=== PATIENT | male | born 1965 | race Caucasian/White ===

== ENCOUNTER 2018-10-17 10:44 | Emergency (ER) | payer MEDICAID ==
[2018-10-17] MEDS ORDERED: IPRATROPIUM/ALBUTEROL 3 ML DEYVIAL ONE ×2 (13:07→13:08)
[2018-10-17] MEDS ORDERED: IPRATROPIUM/ALBUTEROL 3 ML DEYVIAL IH ONE (13:08)
--- NOTE | 2018-10-17 13:17 | EDPHY ---
H & P Time Seen by Provider: 10/17/18 11:25 HPI/ROS: HPI Cough. Achy. 53-year-old male by private vehicle. This patient reports that for the last 1- 2 weeks he has had a cough which she describes as dry. He reports that it is worse with any physical exertion. He reports he has felt achy as well all over his body. He reports that he has had nasal congestion with clear rhinorrhea. He reports that he was working with a friend today when his cough worsened and he had associated shortness of breath with the cough. ROS: Constitutional: No fever, no chills. No weakness. Eyes: No discharge. No changes in vision. ENT: No sore throat. No nasal congestion or rhinorrhea. Respiratory: As above. Cardiac: No chest pain, no palpitations. Gastrointestinal: No abdominal pain, no vomiting, no diarrhea. Genitourinary: No hematuria. No dysuria or increased frequency with urination. Musculoskeletal: No back pain. No neck pain. As above. Skin: No rashes. Neurological: No headache. No focal weakness or altered sensation. Past medical history: Hypertension. He does not take medication for this. He currently does not have a primary care physician. Social history: He is a smoker. No alcohol. He is here by himself. Physical Exam: General Appearance: Alert, no distress. This patient is responding to questions appropriately and in full sentences. This patient appears well- hydrated and well-nourished. Intermittent dry raspy cough. Eyes: Pupils equal and round no pallor or injection. No lid edema, erythema or injection. ENT, Mouth: Mucous membranes are moist. The pharyngeal tissues are unremarkable except some mild and diffuse erythema. No edema or swelling. No asymmetry suggestive of abscess. No exudates. Respiratory: There are no retractions, lungs are clear to auscultation with good air movement bilaterally. No tachypnea. Intermittent dry cough. Cardiovascular: Regular rate and rhythm. No murmur. Neurological: Motor sensory function is grossly intact. Cranial nerves are normal. Gait is normal. Skin: Warm and dry, no rashes. Musculoskeletal: Neck is supple and nontender. No cervical, submandibular, submental lymphadenopathy. No pain on flexion of his neck. Extremities are symmetrical. All joints range without pain or impingement. Psychiatric: No agitation. No depression. Database: EKG: EKG time is 2:09 p.m.; EKG shows a narrow complex normal sinus rhythm with a ventricular rate of 83. Probable left ventricular hypertrophy. The AR, QRS, QT intervals are within normal limits. There are no ST-T wave changes indicative of ischemic or injury pattern. No evidence of right heart strain. Interpreted by me. Imaging: Chest x-ray PA and lateral: No infiltrate. No pneumothorax. Cardiac mediastinal silhouette is unremarkable. Airway disease noted. No other acute cardiopulmonary disease process. Interpreted by me. Procedures: Emergency department course: Triage vital signs reviewed. He is hypertensive. Vital signs are otherwise normal. Pulse oximetry on room air is 96%. He will be given 2 duo nebs back-to -back. His presentation is consistent with a viral bronchitis/upper respiratory infection. Influenza negative. 1:20 p.m., the patient was re-evaluated. He is currently finishing his nebulizer treatment. Results of his chest x-ray discussed with him. 2:00 p.m., the patient was re-evaluated, he has finished his nebulizer treatments. He states that he feels he can breathe better. Repeat pulmonary exam is clear on auscultation bilaterally. However, he states that he still does not feel right. He states that he got up and felt more short of breath and is complaining of chest tightness. EKG will be obtained as well as point of care troponin and D-dimer. 3:20 p.m., the patient's cardiac workup has been reassuring. No red flags. The patient was re-evaluated. Results of this workup were discussed with him. He feels comfortable going home at this time. Vital signs reviewed and are unremarkable. Follow-up and return to emergency department precautions were reviewed with him. All of his questions were answered. The patient was discharged home in good condition. Differential Diagnosis: The differential diagnosis on this patient includes but is not limited to viral syndrome, bronchitis, upper respiratory infection. Pneumonia, serious bacterial infection, congestive heart failure, acute coronary syndrome unlikely. This represents a partial list of diagnoses considered. These considerations are based on history, physical exam, past history, reassessment and diagnostic testing. Smoking Status: Current every day smoker Constitutional: Initial Vital Signs Temperature (C) 36.9 C 10/17/18 10:45 Heart Rate 97 10/17/18 10:45 Respiratory Rate 20 10/17/18 10:45 Blood Pressure 178/109 H 10/17/18 10:45 O2 Sat (%) 96 10/17/18 10:45 O2 Delivery Mode Room Air Allergies/Adverse Reactions: No Known Allergies Allergy (Unverified 10/17/18 10:49) Home Medications: Medication Instructions Recorded Albuterol [Proventil Inhaler HFA 2 puffs IH Q2-4PRN PRN #1 mdi 10/17/18 (*)] Medical Decision Making - Diagnostics Imaging Results: Imaging Impressions Chest X-Ray 10/17/18 11:05 Impression: Airways disease. No pneumonia. - Data Points Laboratory Results: Laboratory Results 10/17/18 14:10 10/17/18 14:10 10/17/18 10/17/18 10/17/18 14:15 14:10 14:10 WBC RBC Hgb Hct MCV MCH MCHC RDW Plt Count MPV Neut % (Auto) Lymph % (Auto) [place] % (Auto) Eos % (Auto) Baso % (Auto) Nucleat RBC Rel Count Absolute Neuts (auto) Absolute Lymphs (auto) Absolute Monos (auto) Absolute Eos (auto) Absolute Basos (auto) Absolute Nucleated RBC Immature Gran % Immature Gran # D-Dimer 0.29 ug/mLFEU ug/mLFEU (0.00-0.50) Sodium 137 mEq/L mEq/L (135-145) Potassium 4.9 mEq/L mEq/L (3.5-5.2) Chloride 104 mEq/L mEq/L (97-110) Carbon Dioxide 24 mEq/l mEq/l (22-31) Anion Gap 9 mEq/L mEq/L (6-14) BUN 15 mg/dL mg/dL (7-23) Creatinine 0.9 mg/dL mg/dL (0.7-1.3) Estimated GFR > 60 Glucose 92 mg/dL mg/dL (70-100) Calcium 9.7 mg/dL mg/dL (8.5-10.4) POC Troponin I 0.00 ng/mL ng/mL (0.00-0.08) NT-Pro-B Natriuret Pep 35 pg/mL pg/mL (0-125) Nasal Influenza A PCR Nasal Influenza B PCR 10/17/18 10/17/18 14:10 10:57 WBC 8.24 10^3/uL 10^3/uL (3.80-9.50) RBC 5.03 10^6/uL 10^6/uL (4.40-6.38) Hgb 15.7 g/dL g/dL (13.7-17.5) Hct 47.5 % % (40.0-51.0) MCV 94.4 fL fL (81.5-99.8) MCH 31.2 pg pg (27.9-34.1) MCHC 33.1 g/dL g/dL (32.4-36.7) RDW 15.1 % % (11.5-15.2) Plt Count 374 10^3/uL 10^3/uL (150-400) MPV 9.2 fL fL (8.7-11.7) Neut % (Auto) 46.5 % % (39.3-74.2) Lymph % (Auto) 38.8 % % (15.0-45.0) [place] % (Auto) 12.4 % % (4.5-13.0) Eos % (Auto) 1.1 % % (0.6-7.6) Baso % (Auto) 1.1 % % (0.3-1.7) Nucleat RBC Rel Count 0.0 % % (0.0-0.2) Absolute Neuts (auto) 3.83 10^3/uL 10^3/uL (1.70-6.50) Absolute Lymphs (auto) 3.20 10^3/uL H 10^3/uL (1.00-3.00) Absolute Monos (auto) 1.02 10^3/uL H 10^3/uL (0.30-0.80) Absolute Eos (auto) 0.09 10^3/uL 10^3/uL (0.03-0.40) Absolute Basos (auto) 0.09 10^3/uL 10^3/uL (0.02-0.10) Absolute Nucleated RBC 0.00 10^3/uL 10^3/uL (0-0.01) Immature Gran % 0.1 % % (0.0-1.1) Immature Gran # 0.01 10^3/uL 10^3/uL (0.00-0.10) D-Dimer Sodium Potassium Chloride Carbon Dioxide Anion Gap BUN Creatinine Estimated GFR Glucose Calcium POC Troponin I NT-Pro-B Natriuret Pep Nasal Influenza A PCR NEGATIVE FOR FLU A (NEGATIVE) Nasal Influenza B PCR NEGATIVE FOR FLU B (NEGATIVE) Medications Given: Discontinued Medications Albuterol/Ipratropium (Duoneb) 6 ml IH EDNOW ONE Stop: 10/17/18 13:09 Last Admin: 10/17/18 13:10 Dose: 6 ml Sodium Chloride (Ns) 500 mls @ 1,000 mls/hr IV EDNOW ONE PRN Reason: Protocol Stop: 10/17/18 14:33 Last Admin: 10/17/18 14:18 Dose: 500 mls Point of Care Test Results: Chemistry 10/17/18 14:15 POC Troponin I 0.00 ng/mL ng/mL (0.00-0.08) Departure - Departure Disposition: Home, Routine, Self-Care Clinical Impression: Bronchitis Condition: Good Instructions: Acute Bronchitis (ED) Additional Instructions: Read and follow provided instructions. Follow-up with a primary care physician in the next 2-3 days for re-evaluation and establishment of a primary care physician relationship. They will reassess your bronchitis as well as re-evaluated your elevated blood pressure and treat this as needed. Albuterol meter dose inhaler: 1-2 puffs every 2-4 hours as needed for cough. You can take NyQuil before sleeping for decongestant and to help you sleep. Return to the emergency department for worsening symptoms or other serious concerns. Referrals: [facility],. [Clinic] - As per Instructions Valentina Rachel MD [[facility] [place]] - As per Instructions Prescriptions: Albuterol [Proventil Inhaler HFA (*)] 2 puffs IH Q2-4PRN PRN #1 mdi PRN Reason: Sob/Dyspnea
[2018-10-17] MEDS ORDERED: NS 500 ML IV ONE (14:04)
[2018-10-17 14:37] LABS: PLATELET COUNT 374 10^3/uL (150-400)
[2018-10-17 15:47] VITALS: BP 148/71
--- NOTE | 2018-10-18 23:23 | CPEKG ---
Test Reason : OPEN Blood Pressure : / mmHG Vent. Rate : 083 BPM Atrial Rate : 084 BPM P-R Int : 169 ms QRS Dur : 089 ms QT Int : 387 ms P-R-T Axes : 042 079 058 degrees QTc Int : 455 ms Sinus rhythm Consider left ventricular hypertrophy Anterior ST elevation, probably due to LVH Confirmed by Conner Paul ([id number]) on 10/18/2018 11:22:32 PM Referred By: Conner Paul Confirmed By:Conner Pual
== END 2018-10-17 15:47 | disposition home or self-care (01) ==
DX: J40 Bronchitis, not specified as acute or chronic (principal); E86.9 Volume depletion, unspecified; F17.200 Nicotine dependence, unspecified, uncomplicated; I10 Essential (primary) hypertension
CPT/HCPCS: 84484-ER

== ENCOUNTER 2018-12-09 12:04 | Emergency (ER) | payer MEDICAID ==
[2018-12-09] MEDS ORDERED: NS 1,000 ML IV ONE (13:06)
[2018-12-09] MEDS ORDERED: METOCLOPRAMIDE 10 MG/2 ML VIAL IVP ONE (13:06)
--- NOTE | 2018-12-09 13:08 | EDPHY ---
H & P Stated Complaint: n/v, blood in vomit Time Seen by Provider: 12/09/18 13:02 HPI/ROS: CHIEF COMPLAINT: Nausea vomiting HISTORY OF PRESENT ILLNESS: The patient is a 53-year-old man who recently moved here from [place]. He states that this morning he began feeling nauseous and has vomited twice. He felt like there may be blood in the vomit. The he showed me a picture. No diarrhea. No fever. No abdominal pain. No chest pain or shortness of breath. No sick contacts that he knows of. No recent travel. Severity: Moderate Modifying factors: None REVIEW OF SYSTEMS: Constitutional: denies: chills, fever, recent illness, recent injury EENTM: denies: blurred vision, double vision, nose congestion Respiratory: denies: cough, shortness of breath Cardiac: denies: chest pain, irregular heart rate, lightheadedness, palpitations Gastrointestinal/Abdominal: Is see HPI Genitourinary: denies: dysuria, frequency, hematuria, pain Musculoskeletal: denies: joint pain, muscle pain Skin: denies: lesions, rash, jaundice, bruising Neurological: denies: headache, numbness, paresthesia, tingling, dizziness, weakness Hematologic/Lymphatic: denies: blood clots, easy bleeding, easy bruising Immunologic/allergic: denies: HIV/AIDS, transplant 10 systems reviewed and negative except as noted EXAM: GENERAL: Well-appearing, well-nourished and in no acute distress. HEAD: Atraumatic, normocephalic. EYES: Pupils equal round and reactive to light, extraocular movements intact, sclera anicteric, conjunctiva are normal. ENT: TMs normal, nares patent, oropharynx clear without exudates. Slightly dry mucous membranes. NECK: Normal range of motion, supple without lymphadenopathy or JVD. LUNGS: Breath sounds clear to auscultation bilaterally and equal. No wheezes rales or rhonchi. HEART: Regular rate and rhythm without murmurs, rubs or gallops. ABDOMEN: Soft, nontender, normoactive bowel sounds. No guarding, no rebound. No masses appreciated. BACK: No CVA tenderness, no spinal tenderness, step-offs or deformities EXTREMITIES: Normal range of motion, no pitting or edema. No clubbing or cyanosis. NEUROLOGICAL: Cranial nerves II through XII grossly intact. Normal speech, normal gait. 5/5 strength, normal movement in all extremities, normal sensation , normal reflexes PSYCH: Normal mood, normal affect. SKIN: Warm, dry, normal turgor, no visible rashes or lesions. Source: Patient Exam Limitations: No limitations - Personal History Current Tetanus/Diphtheria Vaccine: No Current Tetanus Diphtheria and Acellular Pertussis (TDAP): No - Medical/Surgical History Hx Asthma: No Hx Chronic Respiratory Disease: No Hx Diabetes: No Hx Cardiac Disease: Yes Hx Renal Disease: No Hx Cirrhosis: No Hx Alcoholism: No Hx HIV/AIDS: No Hx Splenectomy or Spleen Trauma: No Other PMH: HTN, splenectomy, Hep C - Family History Significant Family History: No pertinent family hx - Social History Smoking Status: Heavy smoker Alcohol Use: Occasionally Drug Use: None Constitutional: Initial Vital Signs Temperature (C) 36.5 C 12/09/18 12:08 Heart Rate 102 H 12/09/18 12:08 Respiratory Rate 16 12/09/18 12:08 Blood Pressure 131/82 H 12/09/18 12:08 O2 Sat (%) 97 12/09/18 12:08 O2 Delivery Mode Room Air Allergies/Adverse Reactions: No Known Allergies Allergy (Verified 12/09/18 12:12) Home Medications: Medication Instructions Recorded Htn Medicine 12/09/18 Ondansetron Odt [Zofran Odt 4 mg 4 mg PO Q4 PRN #20 tab 12/09/18 (RX)] Medical Decision Making - Diagnostics EKG Interpretation: An EKG obtained and was read and documented in trace view. Please see trace view for full reading and report. Sinus rhythm , ventricular hypertrophy with repolarization abnormality, unchanged from previous ED Course/Re-evaluation: The patient showed me a picture of his vomit. I do not see any thierry blood. Will treat with IV fluids, medications and obtain blood work and observed. Stable vital signs. 2:20 p.m. the patient is doing well. He is feeling much better. No more vomiting. He is trying a p.o. Challenge. 2:35 p.m. the patient came out of his room and states that he wishes to go home. He is feeling much better. Differential Diagnosis: Partial list of the Differential diagnosis considered include but were not limited to; gastritis, food poisoning and although unlikely based on the history and physical exam, I also considered sepsis, appendicitis, biliary disease. I discussed these differential diagnoses and the plan with the patient as well as the usual and expected course. The patient understands that the diagnosis is provisional and that in medicine we are not always correct and that further workup is often warranted. Usual and customary warnings were given. All of the patient's questions were answered. The patient was instructed to return to the emergency department should the symptoms at all worsen or return, otherwise to followup with the physician as we discussed. - Data Points Laboratory Results: Laboratory Results 12/09/18 13:05 12/09/18 13:05 12/09/18 12/09/18 13:05 13:05 WBC 8.72 10^3/uL 10^3/uL (3.80-9.50) RBC 3.90 10^6/uL L 10^6/uL (4.40-6.38) Hgb 12.2 g/dL L g/dL (13.7-17.5) Hct 36.8 % L % (40.0-51.0) MCV 94.4 fL fL (81.5-99.8) MCH 31.3 pg pg (27.9-34.1) MCHC 33.2 g/dL g/dL (32.4-36.7) RDW 14.6 % % (11.5-15.2) Plt Count 325 10^3/uL 10^3/uL (150-400) MPV 8.9 fL fL (8.7-11.7) Neut % (Auto) 60.7 % % (39.3-74.2) Lymph % (Auto) 27.2 % % (15.0-45.0) Person % (Auto) 10.6 % % (4.5-13.0) Eos % (Auto) 0.3 % L % (0.6-7.6) Baso % (Auto) 0.7 % % (0.3-1.7) Nucleat RBC Rel Count 0.0 % % (0.0-0.2) Absolute Neuts (auto) 5.30 10^3/uL 10^3/uL (1.70-6.50) Absolute Lymphs (auto) 2.37 10^3/uL 10^3/uL (1.00-3.00) Absolute Monos (auto) 0.92 10^3/uL H 10^3/uL (0.30-0.80) Absolute Eos (auto) 0.03 10^3/uL 10^3/uL (0.03-0.40) Absolute Basos (auto) 0.06 10^3/uL 10^3/uL (0.02-0.10) Absolute Nucleated RBC 0.00 10^3/uL 10^3/uL (0-0.01) Immature Gran % 0.5 % % (0.0-1.1) Immature Gran # 0.04 10^3/uL 10^3/uL (0.00-0.10) Sodium 139 mEq/L mEq/L (135-145) Potassium 4.5 mEq/L mEq/L (3.5-5.2) Chloride 104 mEq/L mEq/L (97-110) Carbon Dioxide 25 mEq/l mEq/l (22-31) Anion Gap 10 mEq/L mEq/L (6-14) BUN 55 mg/dL H mg/dL (7-23) Creatinine 0.8 mg/dL mg/dL (0.7-1.3) Estimated GFR > 60 Glucose 59 mg/dL L mg/dL (70-100) Calcium 9.1 mg/dL mg/dL (8.5-10.4) Total Bilirubin 0.6 mg/dL mg/dL (0.1-1.4) Conjugated Bilirubin 0.4 mg/dL mg/dL (0.0-0.5) Unconjugated Bilirubin 0.2 mg/dL mg/dL (0.0-1.1) AST 133 IU/L H IU/L (17-59) ALT 142 IU/L H IU/L (21-72) Alkaline Phosphatase 68 IU/L IU/L (38-126) Total Protein 7.1 g/dL g/dL (6.3-8.2) Albumin 3.9 g/dL g/dL (3.5-5.0) Lipase 24 IU/L IU/L (23-300) Medications Given: Discontinued Medications Sodium Chloride (Ns) 1,000 mls @ 0 mls/hr IV EDNOW ONE; Wide Open PRN Reason: Protocol Stop: 12/09/18 13:07 Last Admin: 12/09/18 13:18 Dose: 1,000 mls Metoclopramide HCl (Reglan Injection) 10 mg IVP EDNOW ONE Stop: 12/09/18 13:07 Last Admin: 12/09/18 13:18 Dose: 10 mg Departure - Departure Disposition: Home, Routine, Self-Care Clinical Impression: Vomiting Qualifiers: Vomiting type: unspecified Vomiting Intractability: non-intractable Nausea presence: with nausea Qualified Code(s): R11.2 - Nausea with vomiting, unspecified Condition: Fair Instructions: Acute Nausea and Vomiting (ED) Referrals: NONE *PRIMARY CARE P,. [Primary Care Provider] - As per Instructions Vanessa Quesada MD [Medical Doctor] - As per Instructions Stand Alone Forms: Work Excuse Prescriptions: Ondansetron Odt [Zofran Odt 4 mg (RX)] 4 mg PO Q4 PRN #20 tab PRN Reason: Nausea & Vomiting
[2018-12-09 13:18] LABS: PLATELET COUNT 325 10^3/uL (150-400)
--- NOTE | 2018-12-09 13:33 | CPEKG ---
Test Reason : OPEN Blood Pressure : / mmHG Vent. Rate : 094 BPM Atrial Rate : 096 BPM P-R Int : 151 ms QRS Dur : 085 ms QT Int : 334 ms P-R-T Axes : 025 079 040 degrees QTc Int : 418 ms Sinus rhythm Consider left ventricular hypertrophy ST elev, probable normal early repol pattern Confirmed by Ilya Sue ([id number]) on 12/09/2018 1:33:18 PM Referred By: ILYA SUE Confirmed By:Ilya Sue
[2018-12-09 14:55] VITALS: BP 141/85
== END 2018-12-09 14:55 | disposition home or self-care (01) ==
DX: R11.2 Nausea with vomiting, unspecified (principal); E86.9 Volume depletion, unspecified; F17.200 Nicotine dependence, unspecified, uncomplicated
CPT/HCPCS: 96374; J2765

== ENCOUNTER 2018-12-27 12:25 | Emergency (ER) | payer MEDICAID ==
[2018-12-27 13:18] LABS: PLATELET COUNT 368 10^3/uL (150-400)
[2018-12-27] MEDS ORDERED: ALBUTEROL 3 ML DEYVIAL IH ONE (13:40)
[2018-12-27] MEDS ORDERED: methylPREDNISolone SOD SUCC 125 MG/2 ML VIAL IVP ONE (13:40)
[2018-12-27] MEDS ORDERED: IPRATROPIUM/ALBUTEROL 3 ML DEYVIAL IH ONE (13:40)
--- NOTE | 2018-12-27 13:42 | EDPHY ---
H & P Stated Complaint: sob, cough worsening x several weeks Time Seen by Provider: 12/27/18 12:53 HPI/ROS: CHIEF COMPLAINT: Shortness of breath x2 weeks HISTORY OF PRESENT ILLNESS: This is a 53-year-old gentleman with a history of a splenectomy and hepatitis C presents emergency department reporting that he has been having worsening shortness of breath for the last 2 weeks. Patient was seen in this emergency department October for similar complaints and at that time was told he had some airways disease and was given an meter dose inhaler. He reports he has been using this but has not helped his shortness of breath. He denies fevers or chills. No chest pain. No palpitations. He has been nauseous but no recent vomiting or diarrhea. Patient was also seen 2 weeks ago in this emergency department for vomiting. Cough is described as dry and itchy. No sputum production. REVIEW OF SYSTEMS: A comprehensive 10 system review of systems was reviewed and is otherwise negative aside from elements mentioned in the history of present illness and medical decision making. 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 SOCIAL HISTORY: Smoker, daily alcohol drinker, history of hepatitis-C, patient has was moved here from [place]. Reports he has never had pneumococcal vaccination and reports he has no physician here in [place]. VITAL SIGNS Reviewed by me. O2 sat normal, heart rate 102. GENERAL: Well-developed, well-nourished, no obvious respiratory distress. HEENT: Atraumatic. Eyes: No icterus, no injection. Mouth: moist mucous membranes. No erythema or lesions. Neck: supple with no adenopathy. LUNGS: Diminished breath sounds throughout, occasional wheeze in the upper lobes. CARDIAC: Regular rate and rhythm, no rubs, murmurs or gallops. ABDOMEN: Soft, nontender, nondistended, bowel sounds normal. BACK: No CVA tenderness. EXTREMITIES: No trauma. No edema. Range of motion is normal throughout. NEURO: Alert and oriented, grossly nonfocal. SKIN: Warm and dry, no rash. PSYCHIATRIC: Normal mentation, no agitation. - Personal History Current Tetanus Diphtheria and Acellular Pertussis (TDAP): Yes - Medical/Surgical History Hx Asthma: No Hx Chronic Respiratory Disease: No Hx Diabetes: No Hx Cardiac Disease: Yes Hx Renal Disease: No Hx Cirrhosis: No Hx Alcoholism: No Hx HIV/AIDS: No Hx Splenectomy or Spleen Trauma: Yes Other PMH: HTN, splenectomy, Hep C - Social History Smoking Status: Heavy smoker Constitutional: Initial Vital Signs Temperature (C) 36.9 C 12/27/18 12:33 Heart Rate 100 12/27/18 12:33 Respiratory Rate 18 12/27/18 12:33 Blood Pressure 150/92 H 12/27/18 12:33 O2 Sat (%) 95 12/27/18 12:33 O2 Delivery Mode Room Air Allergies/Adverse Reactions: No Known Allergies Allergy (Verified 12/09/18 12:12) Home Medications: Medication Instructions Recorded Htn Medicine 12/09/18 Ondansetron Odt [Zofran Odt 4 mg 4 mg PO Q4 PRN #20 tab 12/09/18 (RX)] Albuterol [Proventil Inhaler HFA 2 puffs IH Q4 PRN #1 mdi 12/27/18 (*)] Azithromycin [Zithromax] 250 mg PO DAILY #4 tab 12/27/18 predniSONE 40 mg PO DAILY #6 tab 12/27/18 Medical Decision Making - Diagnostics EKG Interpretation: 12-LEAD EKG: Please see the full report in [facility]. My interpretation: Sinus tachycardia Imaging Results: Xray: Chest x-ray was obtained. I viewed the images myself on the PACS system. My interpretation of the images is: Clear lungs, possible bronchitis. The radiology interpretation is: Pending. I discussed the results with the patient. Imaging: I viewed and interpreted images myself ED Course/Re-evaluation: 53-year-old male with a history of a splenectomy who is a smoker presenting with shortness of breath and dry cough over the last 2 weeks. Minimal breath sounds on examination with wheezing occasionally. Patient received a DuoNeb as well as a albuterol neb and prednisone. EKG shows no ischemic changes. Laboratory evaluation including troponin largely unremarkable. Chest x-ray with no pneumonia. Re-examined after nebs: Moving better air. Reports feeling improved. Long discussion held with the patient and case management also involved in stressed the importance of follow[facility] for possible pulmonary function test, further evaluation of presumed airways disease, as well as pneumococcal vaccination. Patient is also interested in smoking cessation. Advised that all these issues could be handled at [facility]. Discharged with a prednisone prescription, azithromycin, albuterol MDI. Appointment made for the patient at [facility] by case management. Differential Diagnosis: Differential diagnosis for the patient's shortness of breath was considered including but not limited to pulmonary infectious processes, COPD exacerbation, pulmonary emboli, pulmonary edema, congestive heart failure, and cardiac causes. - Data Points Laboratory Results: Laboratory Results 12/27/18 13:02 12/27/18 13:02 Medications Given: Discontinued Medications Albuterol (Proventil Neb) 3 ml IH EDNOW ONE Stop: 12/27/18 13:41 Last Admin: 12/27/18 13:53 Dose: 3 ml Albuterol/Ipratropium (Duoneb) 3 ml IH EDNOW ONE Stop: 12/27/18 13:41 Last Admin: 12/27/18 13:53 Dose: 3 ml Azithromycin (Zithromax) 500 mg PO EDNOW ONE PRN Reason: Protocol Stop: 12/27/18 14:05 Last Admin: 12/27/18 14:57 Dose: 500 mg Methylprednisolone Sodium Succinate (Solu-Medrol) 125 mg IVP EDNOW ONE Stop: 12/27/18 13:41 Last Admin: 12/27/18 13:53 Dose: 125 mg Point of Care Test Results: Chemistry 12/27/18 13:11 POC Troponin I 0.01 ng/mL ng/mL (0.00-0.08) Departure - Departure Disposition: Home, Routine, Self-Care Clinical Impression: Disease of airway Acute bronchitis Qualifiers: Bronchitis organism: other organism Qualified Code(s): J20.8 - Acute bronchitis due to other specified organisms Condition: Good Instructions: Acute Bronchitis (ED), How to Use a Nebulizer (ED), Bronchospasm (ED) Additional Instructions: For your shortness of breath, you need to continue to use the albuterol meter dose inhaler 2-4 puffs every 3-4 hours. You also need to drink plenty of fluids and stay well-hydrated. You been given an antibiotic in the emergency department and you have also been given a prescription for an antibiotic. Please take this as directed. Your next dose will be tomorrow around noon. You have also been given a prescription for a steroid to help with your airways disease. Again, begin taking this tomorrow afternoon as your 1st dose was given in the emergency department. It is very important that you follow up at [facility] as directed below. Because of her splenectomy you will need to have preventative vaccinations including a pneumococcal vaccination. I also believe that you should have some pulmonary function test performed. And they can help you with your desire to quit smoking. You have a follow up appointment tomorrow, DECEMBER 28 at 5 PM at [facility] in [place] to establish a primary care provider. Please arrive on time and bring your ED paperwork/discharge instructions with you [facility] [id number] [place] [address] Please arrive at 5 PM and check in at the [facility] Referrals: [facility],. [Clinic] - As per Instructions (December 28, 5:00 p.m.) Prescriptions: Albuterol [Proventil Inhaler HFA (*)] 2 puffs IH Q4 PRN #1 mdi PRN Reason: shortness of breath Azithromycin [Zithromax] 250 mg PO DAILY #4 tab predniSONE 40 mg PO DAILY #6 tab
[2018-12-27] MEDS ORDERED: AZITHROMYCIN 250 MG TAB PO ONE (14:04)
--- NOTE | 2018-12-27 14:16 | ASMTCMCOM ---
CM Note CM Note Notes: Met with patient to discuss follow up and establishment of a PCP. Emilia has [place] Medicaid, resides in [place]. This CM offered and scheduled an appointment tomorrow at [facility] for 5PM. Details provided to patient in his discharge instructions and confirms that he will follow up with this appointment to establish a PCP CM available for further needs prn Date Signed: 12/27/2018 02:15 PM Electronically Signed By:Delia Owens RN
[2018-12-27 14:57] VITALS: BP 155/88
--- NOTE | 2019-01-01 17:31 | CPEKG ---
Test Reason : OPEN Blood Pressure : / mmHG Vent. Rate : 102 BPM Atrial Rate : 102 BPM P-R Int : 176 ms QRS Dur : 087 ms QT Int : 331 ms P-R-T Axes : 056 071 -08 degrees QTc Int : 432 ms Sinus tachycardia Consider left ventricular hypertrophy Anterior Q waves, possibly due to LVH Borderline T abnormalities, inferior leads Confirmed by Sandra Cotter ([id number]) on 01/01/2019 5:31:25 PM Referred By: Sandra Cotter Confirmed By:Sandra Cotter
== END 2018-12-27 15:04 | disposition home or self-care (01) ==
DX: J20.9 Acute bronchitis, unspecified (principal); B19.20 Unspecified viral hepatitis C without hepatic coma; F17.200 Nicotine dependence, unspecified, uncomplicated
CPT/HCPCS: 84484-ER; 96374; J2930; J7613

== ENCOUNTER 2019-01-17 10:35 | Emergency (ER) | payer MEDICAID ==
[2019-01-17] MEDS ORDERED: methylPREDNISolone SOD SUCC 125 MG/2 ML VIAL ONE (11:16)
[2019-01-17] MEDS ORDERED: IPRATROPIUM/ALBUTEROL 3 ML DEYVIAL IH ONE (11:16)
[2019-01-17] MEDS ORDERED: methylPREDNISolone SOD SUCC 125 MG/2 ML VIAL IVP ONE (11:16)
[2019-01-17] MEDS ORDERED: IPRATROPIUM/ALBUTEROL 3 ML DEYVIAL ONE (11:16)
--- NOTE | 2019-01-17 11:16 | EDPHY ---
H & P Time Seen by Provider: 01/17/19 11:00 HPI/ROS: CHIEF COMPLAINT: Shortness of breath HISTORY OF PRESENT ILLNESS: Patient is a 53-year-old male with a history of hepatitis C, splenectomy and ongoing smoking the presents emergency department with shortness of breath. He states he has been chronically short of breath but it has been significantly worse over the past few months. He was seen in the emergency department in December. At that time he was given a course of steroid inhalers. He feels inhalers are not working. Uses albuterol approximately 3 times daily. He uses Flovent 1-2 times daily. The patient continues to smoke. He states he has had increasing shortness of breath since driving to [place] last night. He denies fevers or chills. No worsening cough. He denies any significant chest pain. No leg pain or swelling. REVIEW OF SYSTEMS: 10 systems were reveiwed and are negative with the exception of the elements mentioned in the history of present illness. Past Medical/Surgical History: Includes hepatitis-C Past surgical history: Includes splenectomy following pediatric trauma. Social history: The patient smokes daily. He drinks alcohol daily. Smoking Status: Heavy smoker Physical Exam: Vitals noted. O2 saturation 95%. Respiratory rate is 24. GENERAL: Well-appearing, in no acute distress, alert. HEENT: Eyes normal to inspection, normal pharynx, no signs of dehydration. NECK: Normal, supple. RESPIRATORY: Clear to auscultation bilaterally, no rales, rhonchi or wheezing. No increased work of breathing. No retractions. CVS: Regular rate and rhythm, no rubs, murmurs, or gallops. ABDOMEN: Soft, nontender, nondistended, no organomegaly. BACK: Normal to inspection, no CVA tenderness. SKIN: Normal color, no rash, warm, dry. No pallor. EXTREMITIES: No pedal edema, no calf tenderness, no Homans sign or cords, no joint swelling. NEURO/PSYCH: Alert and oriented, normal mood and affect, normal motor sensory exam. Constitutional: Initial Vital Signs Temperature (C) 36.6 C 01/17/19 10:39 Heart Rate 91 01/17/19 10:39 Respiratory Rate 24 H 01/17/19 10:39 Blood Pressure 134/77 H 01/17/19 10:39 O2 Sat (%) 95 01/17/19 10:39 O2 Delivery Mode Room Air Allergies/Adverse Reactions: No Known Allergies Allergy (Verified 01/17/19 10:38) Home Medications: Medication Instructions Recorded Htn Medicine 12/09/18 Albuterol [Proventil Inhaler HFA 2 puffs IH Q4 PRN #1 mdi 12/27/18 (*)] Chantix 01/17/19 Flovent Hfa 01/17/19 predniSONE 40 mg PO DAILY 4 Days tab 01/17/19 Medical Decision Making - Diagnostics Imaging Results: Imaging Impressions Chest X-Ray 01/17/19 11:16 Impression: Clear lungs. No pneumonia or edema. ED Course/Re-evaluation: In the emergency department I discussed possible etiologies with the patient. Answered all his questions. IV was placed. Laboratory studies were obtained. Patient was given a DuoNeb and Solu-Medrol 125 mg IV. Chest x-ray and EKG were ordered. EKG: Sinus rhythm at 76. Normal axis. Normal intervals. There is early repolarization. Left ventricular hypertrophy. CBC is notable for anemia. I checked with his previous values. He has had a history of anemia. This is not worse. Chemistry panel is unremarkable. The patient's troponin is negative. Chest x-ray: No acute disease. Unchanged from his previous x-ray. I discussed the results with the patient. I answered all his questions. The patient was given a prescription of prednisone. He will continue with inhalers. He was given follow-up information with the sales and marketing agent and [facility] Differential Diagnosis: My differential includes but is not limited to airway disease, COPD, bronchitis , pneumonia, ACS, acute [place] - Data Points Laboratory Results: Laboratory Results 01/17/19 11:19 01/17/19 11:19 01/17/19 01/17/19 01/17/19 11:28 11:19 11:19 WBC 4.72 10^3/uL 10^3/uL (3.80-9.50) RBC 3.67 10^6/uL L 10^6/uL (4.40-6.38) Hgb 10.3 g/dL L g/dL (13.7-17.5) Hct 32.2 % L % (40.0-51.0) MCV 87.7 fL fL (81.5-99.8) MCH 28.1 pg pg (27.9-34.1) MCHC 32.0 g/dL L g/dL (32.4-36.7) RDW 15.7 % H % (11.5-15.2) Plt Count 420 10^3/uL H 10^3/uL (150-400) MPV 8.9 fL fL (8.7-11.7) Neut % (Auto) 17.4 % L % (39.3-74.2) Lymph % (Auto) 53.6 % H % (15.0-45.0) [place] % (Auto) 21.2 % H % (4.5-13.0) Eos % (Auto) 5.9 % % (0.6-7.6) Baso % (Auto) 1.9 % H % (0.3-1.7) Nucleat RBC Rel Count 0.0 % % (0.0-0.2) Absolute Neuts (auto) 0.82 10^3/uL L 10^3/uL (1.70-6.50) Absolute Lymphs (auto) 2.53 10^3/uL 10^3/uL (1.00-3.00) Absolute Monos (auto) 1.00 10^3/uL H 10^3/uL (0.30-0.80) Absolute Eos (auto) 0.28 10^3/uL 10^3/uL (0.03-0.40) Absolute Basos (auto) 0.09 10^3/uL 10^3/uL (0.02-0.10) Absolute Nucleated RBC 0.00 10^3/uL 10^3/uL (0-0.01) Immature Gran % 0.0 % % (0.0-1.1) Immature Gran # 0.00 10^3/uL 10^3/uL (0.00-0.10) RBC/WBC/PLT Morphology TNP Platelet Estimate TNP Sodium 139 mEq/L mEq/L (135-145) Potassium 3.9 mEq/L mEq/L (3.5-5.2) Chloride 104 mEq/L mEq/L (97-110) Carbon Dioxide 22 mEq/l mEq/l (22-31) Anion Gap 13 mEq/L mEq/L (6-14) BUN 14 mg/dL mg/dL (7-23) Creatinine 0.7 mg/dL mg/dL (0.7-1.3) Estimated GFR > 60 Glucose 94 mg/dL mg/dL (70-100) Calcium 8.8 mg/dL mg/dL (8.5-10.4) POC Troponin I 0.00 ng/mL ng/mL (0.00-0.08) Medications Given: Discontinued Medications Albuterol/Ipratropium (Duoneb) 3 ml IH EDNOW ONE Stop: 01/17/19 11:17 Last Admin: 01/17/19 11:21 Dose: 3 ml Methylprednisolone Sodium Succinate (Solu-Medrol) 125 mg IVP EDNOW ONE Stop: 01/17/19 11:17 Last Admin: 01/17/19 11:21 Dose: 125 mg Point of Care Test Results: Chemistry 01/17/19 11:28 POC Troponin I 0.00 ng/mL ng/mL (0.00-0.08) Departure - Departure Disposition: Home, Routine, Self-Care Clinical Impression: Chronic obstructive pulmonary disease with acute exacerbation Condition: Good Instructions: COPD (Chronic Obstructive Pulmonary Disease) (ED) Additional Instructions: Return with increasing shortness of breath, chest pain, fever or any other concerns. Use your inhalers as directed. Take your entire course of steroid. Referrals: [facility] [Other] - 2-3 days, call for appt. Tyree Lopez MD [Medical Doctor] - 5-7 days, if not improved Prescriptions: predniSONE 40 mg PO DAILY 4 Days tab
[2019-01-17 11:28] LABS: PLATELET COUNT 420 10^3/uL (150-400)
[2019-01-17 12:08] VITALS: BP 135/75
--- NOTE | 2019-01-17 14:46 | CPEKG ---
Test Reason : OPEN Blood Pressure : / mmHG Vent. Rate : 076 BPM Atrial Rate : 077 BPM P-R Int : 176 ms QRS Dur : 084 ms QT Int : 356 ms P-R-T Axes : -24 051 023 degrees QTc Int : 401 ms Sinus rhythm Consider left ventricular hypertrophy ST elev, probable normal early repol pattern Confirmed by Vaughn Doyle ([id number]) on 01/17/2019 2:46:27 PM Referred By: VAUGHN DOYLE Confirmed By:Vaughn Doyle
== END 2019-01-17 12:05 | disposition home or self-care (01) ==
DX: J44.1 Chronic obstructive pulmonary disease with (acute) exacerbation (principal)
CPT/HCPCS: 84484-ER; 96374; J2930

== ENCOUNTER 2019-01-19 10:28 | Emergency (ER) | payer MEDICAID ==
[2019-01-19 10:32] VITALS: BP 138/95
--- NOTE | 2019-01-19 10:42 | EDPHY ---
H & P Stated Complaint: "feels like my throat is closing and I'm itching" Time Seen by Provider: 01/19/19 10:41 HPI/ROS: CHIEF COMPLAINT: Chronic dyspnea and cough HISTORY OF PRESENT ILLNESS: The patient presents the ED with ongoing chronic dyspnea and cough and has now developed a sore throat. The patient has had symptoms for the past several months. He has been seen in the emergency department a number of times. He has been following up with [facility]. He was diagnosed with bronchitis. He had a recent chest x-ray which demonstrated no evidence of pneumonia. The patient is currently on an inhaled steroid, a nasal steroid and albuterol. The patient had a sensation that his throat was closing which prompted his visit to the emergency department today. REVIEW OF SYSTEMS: A comprehensive 10 point review of systems is otherwise negative aside from elements mentioned in the history of present illness. Source: Patient - Personal History Current Tetanus/Diphtheria Vaccine: Yes Current Tetanus Diphtheria and Acellular Pertussis (TDAP): Yes - Medical/Surgical History Hx Asthma: No Hx Chronic Respiratory Disease: Yes Hx Diabetes: No Hx Cardiac Disease: Yes Hx Renal Disease: No Hx Cirrhosis: No Hx Alcoholism: No Hx HIV/AIDS: No Hx Splenectomy or Spleen Trauma: Yes Other PMH: HTN, splenectomy, Hep C - Social History Smoking Status: Heavy smoker - Physical Exam Exam: General Appearance: Alert, no distress Eyes: Pupils equal and round no pallor or injection ENT, Mouth: Mucous membranes moist Respiratory: There are no retractions, lungs are clear to auscultation Cardiovascular: Regular rate and rhythm Gastrointestinal: Abdomen is soft and nontender, no masses, bowel sounds normal Neurological: A&O, normal motor function, normal sensory exam, normal cranial nerves Skin: Warm and dry, no rashes Musculoskeletal: Neck is supple nontender Extremities: symmetrical, full range of motion Psychiatric: Patient is oriented X 3, there is no agitation Constitutional: Initial Vital Signs Temperature (C) 36.3 C 01/19/19 10:29 Heart Rate 73 01/19/19 10:29 Respiratory Rate 16 01/19/19 10:29 Blood Pressure 138/95 H 01/19/19 10:29 O2 Sat (%) 98 01/19/19 10:29 O2 Delivery Mode Room Air Allergies/Adverse Reactions: No Known Allergies Allergy (Verified 01/17/19 10:38) Home Medications: Medication Instructions Recorded Htn Medicine 12/09/18 Albuterol [Proventil Inhaler HFA 2 puffs IH Q4 PRN #1 mdi 12/27/18 (*)] Chantix 01/17/19 Flovent Hfa 01/17/19 predniSONE 40 mg PO DAILY 4 Days tab 01/17/19 Medical Decision Making ED Course/Re-evaluation: I reviewed the results of the patient's visits. He has no evidence of airway obstruction or swelling. He has no evidence of respiratory compromise or trismus. The patient is currently on appropriate medications for reactive airway disease. At this point time I see no indication for antibiotics. I see no progression of his symptoms. I have asked him to follow up with our on-call iron guardrail installer for follow-up appointment. Departure - Departure Disposition: Home, Routine, Self-Care Clinical Impression: Chronic bronchitis Condition: Good Instructions: Chronic Bronchitis (ED) Additional Instructions: 1. Please continue your regular medications. 2. Please schedule a follow-up appointment with the iron guardrail installer you have been referred to. Please be sure to let them know you in the emergency department and the ER physician wanted you to have a quick follow-up appointment. 3. Please continue to work with [facility] for management of your chronic bronchitis. Referrals: David Lee MD [Medical Doctor] - As per Instructions [facility],. [Clinic] - As per Instructions
== END 2019-01-19 11:05 | disposition home or self-care (01) ==
DX: J40 Bronchitis, not specified as acute or chronic (principal); I10 Essential (primary) hypertension; B19.20 Unspecified viral hepatitis C without hepatic coma; F17.200 Nicotine dependence, unspecified, uncomplicated

== ENCOUNTER 2019-02-09 10:54 | Emergency (ER) | payer MEDICAID | END 2019-02-09 12:21 | disposition home or self-care (01) ==

== ENCOUNTER → 2019-02-14 | Outpatient (CLI) | payer MEDICAID | LOC: FIMAGING 14:38 ==